=== PATIENT | female | born 1965 | race Caucasian/White ===

== ENCOUNTER 2016-10-01 18:55 | Observation (INO) | payer BC ==
[~2016-10-01] VITALS: Ht 167.6 cm; Wt 57.2 kg
[2016-10-01 19:32] LABS: CHLORIDE 108 mEq/L (99-109)
[2016-10-01 19:33] LABS: POTASSIUM 4.3 mEq/L (3.7-5.4); SODIUM 140 mEq/L (136-147)
[2016-10-01 19:35] LABS: GLUCOSE 100 mg/dL (70-99); NRBC (%) 0.7 /100 WBC (0-0); PLATELET COUNT 68 K/uL (156-360)
[2016-10-01 19:36] LABS: ANION GAP 7 MEQ/L (2-14)
[2016-10-01 19:40] LABS: ALKALINE PHOSPHATASE 36 IU/L (3-129); GFR ESTIMATE (CALCULATED) > 59 mL/min/; TOTAL BILIRUBIN 1.5 mg/dL (0.0-1.0); UREA NITROGEN (BUN) 16 mg/dL (9-23)
[2016-10-01 19:48] LABS: QUANTITATIVE HCG < 4.0 MIU/ML
[2016-10-01 19:53] LABS: LIPASE 43 U/L (1.0-51.0)
[2016-10-01 20:22] LABS: HEMATOCRIT 13.9 % (36.0-46.0); MCH 42.1 PG (29.0-34.0); MCHC 34.5 G/DL (30.0-36.0); MCV 121.9 FL (83-99); PLAT.SUFFICIENCY DECREASED; RBC DIS.WIDTH-CV 17.3 % (11.8-14.6); RBC DIS.WIDTH-SD 55.6 % (39-53); RED BLOOD COUNT 1.14 M/uL (3.80-5.20); WHITE BLOOD COUNT 2.7 K/uL (4.1-10.2)
[2016-10-01 20:32] LABS: IRON 144 MCG/DL (35-150)
[2016-10-01 21:24] LABS: FERRITIN 140 NG/ML (10-291)
[2016-10-01 21:30] LABS: INTER. NORMALIZED RATIO 1.1; PROTHROMBIN TIME 11.2 (9.2-11.2); PTT 24.7 (25-32)
[2016-10-01 22:27] VITALS: BP 96/59
[2016-10-01 22:46] VITALS: BP 99/59
[2016-10-02] VITALS (10 sets, daily range): BP systolic 96–105; BP diastolic 61–71
[2016-10-02 06:50] LABS: MCHC 34.8 G/DL (30.0-36.0); NRBC (%) 1.3 /100 WBC (0-0); PLATELET COUNT 52 K/uL (156-360)
[2016-10-02 06:51] LABS: MCV 103.4 FL (83-99); RED BLOOD COUNT 2.03 M/uL (3.80-5.20)
[2016-10-02 07:07] LABS: ANION GAP 6 MEQ/L (2-14); CHLORIDE 107 MEQ/L (99-109); GFR ESTIMATE (CALCULATED) > 59 mL/min/; GLUCOSE 93 mg/dL (70-99); SAMPLE HEMOLYSIS CHECK 0; SAMPLE ICTERIC CHECK 0; SAMPLE LIPEMIA CHECK 0; SODIUM 139 MEQ/L (136-147); TROP-I INTERPRETATION NEGATIVE; TROPONIN-I < 0.01 ng/mL (0.0-0.30); UREA NITROGEN (BUN) 15 mg/dL (9-23)
[2016-10-02 11:13] LABS: POC NON-PRINT COM 1 ND
[2016-10-02 12:31] LABS: GLOBULINS 2.2 G/DL (2.3-3.5)
[2016-10-02 12:43] LABS: ABS NEUTROPHIL COUNT 0.9; ANISOCYTOSIS 3+; EOSINOPHIL ABS CT 0; HYPOCHROMASIA 3+; MACROCYTES 2+; MICROCYTOSIS 1+; POIKILOCYTOSIS 2+; SCHISTOCYTES 1+; TEAR DROP CELLS 1+
[2016-10-02] MEDS ORDERED: CYANOCOBAL1000 MCG/2 SC (14:03)
[2016-10-02 15:03] LABS: TROP-I INTERPRETATION NEGATIVE; TROPONIN-I < 0.01 ng/mL (0.0-0.30)
[2016-10-03 17:13] LABS: Flow Clinical Information NOT PROVIDED (()); Flow Number of Markers 22 (()); Flow Spec Viability 95 % (()); Flow Specimen Type NOT PROVIDED (())
[2016-10-04 13:11] LABS: ALBUMIN 3.75 G/DL (3.6-4.9); ALBUMIN PERCENT 68.1 %
[2016-10-04 13:12] LABS: ALPHA-1 GLOBULIN 0.21 G/DL (0.15-0.40); ALPHA-1 PERCENT 3.9 %; ALPHA-2 GLOBULIN 0.35 G/DL (0.45-0.85); ALPHA-2 PERCENT 6.3 %; BETA PERCENT 7.9 %; GAMMA PERCENT 13.8 %
[2016-10-04 13:14] LABS: IFE GEL NO. 57-6
== END 2016-10-02 15:12 | disposition home or self-care (01) ==
LOC: EME 18:55 → 5SOUTH 23:22 → EDOF 23:22 → 5SOUTH 23:22
PROVIDERS: Hospitalist; Internal Medicine Hematology & Oncology; Physician Assistant
PROC: 30233N1 Transfusion of Nonautologous Red Blood Cells into Peripheral Vein, Percutaneous Approach (ICD-10-PCS; principal; 2016-10-01)
DX: D64.9 Anemia, unspecified (principal); D61.818 Other pancytopenia; N92.0 Excessive and frequent menstruation with regular cycle
CPT/HCPCS: 71020; 76856; 78582; 80048; 80053; 81003; 82272; 82607; 82728; 82746; 83540; 83690; 83883 90; 84165; 84466; 84484; 84702; 85007; 85025; 85027; 85610; 85730; 86334; 86900; 86901; 86920; 88184 90; 88185 90; 88189 90; 93005; 93306; 99281; 99285; A9540; A9567; G0378; J2405; J3420; J7030; P9016; S0028